=== PATIENT | male | born 1970 | race Caucasian/White ===

== ENCOUNTER 2021-11-13 17:28 | Emergency (ER) | payer BC ==
[~2021-11-13] VITALS: Ht 180.3 cm; Wt 95.5 kg
[2021-11-13 18:46] LABS: BILIRUBIN,URINE NEG (NEG); CLARITY,URINE CLEAR; COLOR,URINE YELLOW; GLUCOSE,URINE NEG (NEG)
[2021-11-13 18:47] LABS: NITRITE,URINE NEG (NEG); UROBILINOGEN,URINE 0.2 mg/dL (0.2 mg/dL)
[2021-11-13 18:48] LABS: BACTERIA,URINE FEW /HPF (0-FEW); SQUAMOUS EPITHELIAL CELL,UR FEW /LPF
--- NOTE | 2021-11-13 20:24 | RAD ---
CT abdomen pelvis without contrast dated 11/13/2021. COMPARISON: None. TECHNIQUE: Contiguous axial imaging of the abdomen pelvis performed without the administration of IV or oral con trast. One or more of the following individualized dose reduction techniques were utilized for this examinat ion: 1. Automated exposure control 2. Adjustment of the mA and/or kV according to patient size 3. Use of iterative reconstruction technique. FINDINGS: Limited images of lung bases are clear. Heart size within normal limits. No pleural or pericardial ef fusion. Solid abdominal viscera not well evaluated in the absence of contrast material. No apparent attenuati on abnormality of the liver or spleen. Pancreas, adrenal glands and gallbladder are unremarkable. There is a 3 mm calcific stone at the right UVJ. No significant hydronephrosis or hydroureter. There is mild pelvocaliectasis on the left without left-sided ureteral stone. There are couple of low-densi ty foci scattered throughout the left kidney, likely cysts. There is also a 3 mm calcific stone at th e lower pole left kidney. Unopacified GI tract normal in caliber and contour. No focal bowel wall thickening. No inflammatory s tranding in the mesentery. The appendix is normal in caliber. No ascites or lymphadenopathy. Abdomina l aorta normal in caliber. Images of pelvis a moderately distended urinary bladder. Prostate gland normal in size. No free fluid or pelvic adenopathy. Small right inguinal hernia containing only fat. Bone window show no acute finding. Multilevel spondylosis. IMPRESSION: 1. Small calcific density in the posterior urinary bladder near the right UVJ, likely a recently pass ed left ureteral stone. There is mild left-sided pelvocaliectasis with mild asymmetric inflammatory s tranding in the left perinephric fat. No significant hydronephrosis on the right. 2. Left-sided nephrolithiasis. 3. Multiple indeterminate low-density foci throughout the left kidney, likely cysts. 4. Distended urinary bladder. 5. Right inguinal hernia containing only fat. Electronically signed by: Keyon Nicholas MD (11/13/2021 8:22 PM) [facility]
[2021-11-13 20:37] VITALS: BP 163/85
--- NOTE | 2021-11-13 21:23 | PHYS DOC ---
Past History Additional Past Medical Histor: kidney stones Past Surgical History: No Surgical History Adult General Chief Complaint Chief Complaint: FLANK PAIN HPI HPI Patient is a otherwise healthy 51-year-old male, with a history of renal stones who presents to the emergency department with a chief complaint of right-sided flank pain for day, 4 out of 10, sharp in nature. States has had this before when he had kidney stones. Denies any recent trauma, travel, illnesses, fevers, chest pain, shortness of breath, abdominal pain, nausea, vomiting, diarrhea, dysuria, hematuria or blood in the stool. States he didn't take any medications. Review of Systems Review of Systems Review of systems otherwise unremarkable except noted in HPI Allergies Allergies Allergies Coded Allergies Type Severity Reaction Last Updated Verified No Known Drug Allergies 11/13/21 No Physical Exam Physical Exam Constitutional: Well developed, well nourished, no acute distress, non-toxic appearance. [] HENT: Normocephalic, atraumatic, bilateral external ears normal, oropharynx moist, no oral exudates, nose normal. [] Cardiovascular:Heart rate regular rhythm, no murmur [] Lungs & Thorax: Bilateral breath sounds clear to auscultation [] Abdomen: soft, no tenderness, no masses, no pulsatile masses. [] Skin: Warm, dry, no erythema, no rash. [] Back: no CVA tenderness. [] Extremities: No tenderness, no cyanosis, no clubbing, ROM intact, no edema. [] Neurologic: Alert and oriented X 3, no focal deficits noted. [] Psychologic: Affect normal, judgement normal, mood normal. [] Current Patient Data Vital Signs Vital Signs Date Time Temp Pulse Resp B/P (MAP) Pulse Ox O2 Delivery O2 Flow Rate FiO2 11/13/21 20:37 81 18 163/85 (111) 98 Room Air Lab Results Laboratory Tests Test 11/13/21 18:25 Urine Collection Type Unknown Urine Color Yellow Urine Clarity Clear Urine pH 6.0 Urine Specific [place] 1.010 Urine Protein Neg (NEG-TRACE) Urine Glucose (UA) Neg mg/dL (NEG) Urine Ketones (Stick) Neg mg/dL (NEG) Urine Blood Trace (NEG) Urine Nitrite Neg (NEG) Urine Bilirubin Neg (NEG) Urine Urobilinogen Dipstick 0.2 mg/dL (0.2 mg/dL) Urine Leukocyte Esterase Neg (NEG) Urine RBC 1-2 /HPF (0-2) Urine WBC 1-4 /HPF (0-4) Urine Squamous Epithelial Cells Few /LPF Urine Bacteria Few /HPF (0-FEW) EKG EKG [] Radiology/Procedures Radiology/Procedures [] Heart Score C/O Chest Pain: No Risk Factors: Risk Factors: DM, Current or recent (<one month) smoker, HTN, HLP, family history of CAD, obesity. Risk Scores: Risk Factors: DM, Current or recent (<one month) smoker, HTN, HLP, family history of CAD, obesity. Course & Med Decision Making Course & Med Decision Making Patient is a 51-year-old male who presents with right flank pain Vital signs notable for hypertension. Physical exam noted above. Patient given pain medicine. Denied need for nausea medicine. CT notable for past renal stone in the bladder. Discussed all findings with patient. Discussed symptom management at home. Discussed diet at home for renal lithiasis. Advised to follow-up in the morning with primary care physician. Gave strict return precautions to the ED. Patient grateful, verbalized understanding and agr eed with plan of discharge Dragon Disclaimer Dragon Disclaimer This electronic medical record was generated, in whole or in part, using a voice recognition dictation system. Departure Departure: Impression: Primary Impression: Kidney stones Disposition: HOME / SELF CARE / HOMELESS Condition: GOOD Referrals: PCP,SANTA (PCP) JAIR REHMAN MD Patient Instructions: Diet for Kidney Stones, Kidney Stones Additional Instructions: Thank you for coming into the emergency department tonight and allowing us to take care of you. Please read the attached information carefully to go back over some of the things we discussed. You can take Tylenol and ibuprofen as needed. Please be sure to drink plenty of fluids. Please follow-up with your primary care physician in the morning to set up a follow-up visit. Please come back to the ED with new or concerning symptoms as we discussed. KERRI FERREIRA MD Nov 13, 2021 21:23
[2021-11-13] MEDS ORDERED: oxyCODONE/APAP 5/325 1 TAB TABLET ONE (21:35)
== END 2021-11-13 21:37 | disposition home or self-care (01) ==
LOC: ER 17:28
DX: N20.0 Calculus of kidney (principal); Z87.442 Personal history of urinary calculi
CPT/HCPCS: 74176; 81001; 99284

== ENCOUNTER 2021-11-20 15:27 | Emergency (ER) | payer BC ==
[~2021-11-20] VITALS: Ht 180.3 cm; Wt 95.5 kg
--- NOTE | 2021-11-20 15:44 | PHYS DOC ---
Past History Additional Past Medical Histor: kidney stones Past Surgical History: No Surgical History General Adult EDM: Chief Complaint: WOUND CHECK HPI: HPI: Patient is a 51-year-old male coming in for a work release to return to work. Patient was diagnosed with Covid 7 days ago when symptoms started 10 days ago. He states that he has been done better but still has occasional subjective chills and chest tightness of taking a deep breath. He still has fatigue but denies any loss of smell or taste and smell to keep up on his p.o. intake. Review of Systems: Review of Systems: All other systems within normal limits except for as noted in the HPI Allergies: Allergies: Allergies Coded Allergies Type Severity Reaction Last Updated Verified No Known Drug Allergies 11/13/21 No Physical Exam: PE: Constitutional: Well developed, well nourished, no acute distress, non-toxic appearance. [] HENT: Normocephalic, atraumatic, bilateral external ears normal, nose normal. [] Eyes: PERRLA, conjunctiva normal, no discharge. [] Neck: No rigidity, supple, no stridor. [] Cardiovascular: Regular rate and rhythm, brisk cap refill [] Lungs & Thorax: Non labored symmetric respirations, no tachypnea or respiratory distress [] Abdomen: Soft, nondistended. Skin: Warm, dry, no erythema, no rash. [] Back: Unremarkable Extremities: No deformities, range of motion grossly intact, no lower extremity edema [] Neurologic: Alert and oriented X 3, no focal deficits noted. [] Psychologic: Affect normal, judgement normal, mood normal. [] EKG: EKG: [] Radiology/Procedures: Radiology/Procedures: [address] [address] IMAGING REPORT Signed PATIENT: RENATE EMMANUEL ACCOUNT: [id number] : 1970 LOCATION: ER AGE: 51 SEX: M EXAM STATUS: REG ER ORD. PHYSICIAN: KADIE LEE MD REASON: post covid pneumonia PROCEDURE: CHEST PA & LATERAL Single view of the chest. 11/20/2021 3:48 PM Indication: Reason: post covid pneumonia / Comparison: None available Findings: There is left upper lung infiltrate concerning for pneumonia. Probable minimal patchy infiltrates in the right lung also noted. No pneumothorax or pleural effusion is seen. Heart size is normal. Bony thorax is grossly intact. IMPRESSION Left upper lobe infiltrate concerning for pneumonia. Possible mild patchy infiltrates in the right lung. Radiographic follow-up to resolution recommended Electronically signed by: Zulma Benton MD (11/20/2021 4:03 PM) [id number] DICTATED AND SIGNED BY: ZULMA BENTON MD DATE: 11/20/21 160 CC: KADIE LEE MD; PCP,NO ~MTH0 0 [] Heart Score: C/O Chest Pain: No Risk Factors: Risk Factors: DM, Current or recent (<one month) smoker, HTN, HLP, family history of CAD, obesity. Risk Scores: Score 0 - 3: 2.5% MACE over next 6 weeks - Discharge Home Score 4 - 6: 20.3% MACE over next 6 weeks - Admit for Clinical Observation Score 7 - 10: 72.7% MACE over next 6 weeks - Early Invasive Strategies Course & Med Decision Making: Course & Med Decision Making Pertinent Labs and Imaging studies reviewed. (See chart for details) [] Dragon Disclaimer: Dragon Disclaimer: This electronic medical record was generated, in whole or in part, using a voice recognition dictation system. Departure Departure: Impression: Primary Impression: Pneumonia Disposition: HOME / SELF CARE / HOMELESS Condition: STABLE Referrals: PCP,NO (PCP) Patient Instructions: Pneumonia, Adult Scripts Doxycycline Hyclate (DOXYCYCLINE HYCLATE) 100 Mg Tablet 1 TAB PO BID for antibiotic for 7 Days, #14 TAB Prov: KADIE LEE MD 11/20/21 KADIE LEE MD Nov 20, 2021 15:44
[2021-11-20 15:45] VITALS: BP 163/85
--- NOTE | 2021-11-20 16:06 | RAD ---
Single view of the chest. 11/20/2021 3:48 PM Indication: Reason: post covid pneumonia / Comparison: None available Findings: There is left upper lung infiltrate concerning for pneumonia. Probable minimal patchy infil trates in the right lung also noted. No pneumothorax or pleural effusion is seen. Heart size is kraig l. Bony thorax is grossly intact. IMPRESSION Left upper lobe infiltrate concerning for pneumonia. Possible mild patchy infiltrates in t he right lung. Radiographic follow-up to resolution recommended Electronically signed by: Hebert Trotter MD (11/20/2021 4:03 PM) [id number]
[2021-11-20] MEDS ORDERED: DOXY100T PO (16:21)
== END 2021-11-20 16:31 | disposition home or self-care (01) ==
LOC: ER 15:27
DX: J18.9 Pneumonia, unspecified organism (principal)
CPT/HCPCS: 71046; 99283

== ENCOUNTER 2022-04-22 16:30 | Emergency (ER) | payer BC ==
[~2022-04-22] VITALS: Ht 180.3 cm; Wt 95.5 kg
[~2022-04-22 16:30] MED LIST: DOXY100T PO
--- NOTE | 2022-04-22 19:27 | PHYS DOC ---
Past History Past Medical History: Diabetes, Hypertension Additional Past Medical Histor: kidney stones, peripheral neuropathy Past Surgical History: No Surgical History Alcohol Use: None General Adult EDM: Chief Complaint: LOWER EXT PAIN HPI: HPI: Patient is a 51 year old male with PMHx that includes DMII with peripheral neuropathy and HTN who presents with bilateral calf pain. Patient states he has had pain for []. 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 He denies chest pain, palpitations, cough, shortness of breath. Review of Systems: Review of Systems: ROS negative or noncontributory except as mentioned in HPI. Allergies: Allergies: Allergies Coded Allergies Type Severity Reaction Last Updated Verified No Known Drug Allergies 11/13/21 No Physical Exam: PE: Constitutional: Well developed, well nourished, no acute distress, non-toxic appearance. HENT: Normocephalic, atraumatic, bilateral external ears normal, nose normal. Eyes: EOMI, conjunctiva normal, no discharge. Neck: Normal range of motion, no stridor. Thorax: Equal thoracic expansion, no increased work of breathing. Skin: Warm, dry, no erythema, no rash. Back: No tenderness, no CVA tenderness. Extremities: Popliteal tenderness bilaterally, negative Mateusz's sign bilatera lly, no cyanosis, no clubbing, active ROM intact hips/kness/ankles, no edema. Neurologic: Alert and oriented x4, normal motor function, normal sensory function, no focal deficits noted. Current Patient Data: Vital Signs: Vital Signs Date Time Temp Pulse Resp B/P (MAP) Pulse Ox O2 Delivery O2 Flow Rate FiO2 04/22/22 18:17 97.7 70 18 114/80 (91) 99 Room Air Radiology/Procedures: Radiology/Procedures: PROCEDURE: VENOUS LOWER EXT BILATERAL EXAMINATION: US BILATERAL LOWEREXTREMITY VENOUS DOPPLER (LOWER EXTREMITY VENOUS ULTRASOUND) CLINICAL HISTORY: Bilateral lower extremity pain, tightness, swelling. TECHNIQUE: Sonographic grayscale images obtained of the bilateral lower extremity deep venous systems with color flow Doppler, compression, and augmentation techniques as indicated. Images obtained and stored in a permanent archive. COMPARISON: None FINDINGS: RIGHT: No evidence of absent flow or incompressibility within the common femoral vein, femoral vein, or popliteal vein. Visualized calf veins appear patent on limited evaluation. LEFT: No evidence of absent flow or incompressibility within the common femoral vein, femoral vein, or popliteal vein. Visualized calf veins appear patent on limited evaluation. IMPRESSION: No evidence of bilateral lower extremity DVT. Electronically signed by: Yahir Gutierrez DO (04/22/2022 8:15 PM) [facility] Heart Score: C/O Chest Pain: No Course & Med Decision Making: Course & Med Decision Making Pertinent Labs and Imaging studies reviewed. (See chart for details) Bilateral lower extremity ultrasounds did not show any evidence of DVT or cysts at this time. Patient was advised to follow-up with his primary care provider for any continued complaints when he gets home. Return precautions were provided. Patient understands and is agreeable to discharge plan. Avis Disclaimer: Avis Disclaimer: This electronic medical record was generated, in whole or in part, using a voice recognition dictation system. Departure Departure: Impression: Primary Impression: Bilateral lower extremity pain Disposition: HOME / SELF CARE / HOMELESS Condition: GOOD Referrals: PCP,SANTA (PCP) Patient Instructions: Muscle Cramps, [id number] Additional Instructions: EMERGENCY DEPARTMENT GENERAL DISCHARGE INSTRUCTIONS Thank you for coming to [facility] (ED) today and trusting us with you care. We trust that you had a positive experience in our Emergency Department. If you wish to speak to the department management, you may call the director at [phone]. YOUR FOLLOW UP INSTRUCTIONS ARE FOLLOWS: 1. Follow up with your primary care doctor. If you do not have a primary doctor, please ask for a resource list of physicians or clinics that may be able to assist you with follow up care. 2. The emergency provider has interpreted your imaging studies, if any were ordered. The radiology specialist field engineer also reviewed them. If there is a change in the findings, you will be notified in 48 hours when at all possible. 3. If a lab test or culture has been done, your results will be reviewed and you will be notified if you need a change in treatment. 4. Follow instructions verbalized to you and refer to the printouts if needed. ADDITIONAL INSTRUCTIONS AND INFORMATION: 1. Your care today has been supervised by a physician who is specially trained in emergency care. Many problems require more than one evaluation for a complete diagnosis and treatment. We recommend that you schedule your follow up appointment as recommended to ensure complete treatment of you illness or injury. If you are unable to obtain follow up care and continue to have a problem, or if your condition worsens, we recommend that you return to the ED. 2. We are not able to safely determine your condition over the phone nor are we able to give sound medical advice over the phone. For these safety reasons, if you call for medical advice we will ask you to come to the ED for further evaluation. 3. If you have any questions regarding these discharge instructions please call the ED at [phone]. SAFETY INFORMATION: In the interest of safety, wellness, and injury prevention; we encourage you to wear your seat belt, if you smoke; quite smoking, and we encourage family to use a protective helmet for bicycling and other sporting events that present an increased risk for head injury. IF YOUR SYMPTOMS WORSEN OR NEW SYMPTOMS DEVELOP, OR YOU HAVE CONCERNS ABOUT YOUR CONDITION; OR IF YOUR CONDITION WORSENS WHILE YOU ARE WAITING FOR YOUR FOLLOW UP APPOINTMENT; EITHER CONTACT YOUR PRIMARY CARE DOCTOR, THE PHYSICIAN WHOSE NAME AND NUMBER YOU WERE GIVEN, OR RETURN TO THE ED IMMEDIATELY. BINDU ALDRIDGE April 22, 2022 19:27
--- NOTE | 2022-04-22 20:17 | RAD ---
EXAMINATION: US BILATERAL LOWEREXTREMITY VENOUS DOPPLER (LOWER EXTREMITY VENOUS ULTRASOUND) CLINICAL HISTORY: Bilateral lower extremity pain, tightness, swelling. TECHNIQUE: Sonographic grayscale images obtained of the bilateral lower extremity deep venous systems with color flow Doppler, compression, and augmentation techniques as indicated. Images obtained and stored in a permanent archive. COMPARISON: None FINDINGS: RIGHT: No evidence of absent flow or incompressibility within the common femoral vein, femoral vein, or popl iteal vein. Visualized calf veins appear patent on limited evaluation. LEFT: No evidence of absent flow or incompressibility within the common femoral vein, femoral vein, or popl iteal vein. Visualized calf veins appear patent on limited evaluation. IMPRESSION: No evidence of bilateral lower extremity DVT. Electronically signed by: Yahir Gutierrez DO (04/22/2022 8:15 PM) [facility]
[2022-04-22 20:58] VITALS: BP 158/96
== END 2022-04-22 20:58 | disposition home or self-care (01) ==
LOC: ER 16:30
DX: M79.662 Pain in left lower leg (principal); M79.661 Pain in right lower leg; E11.42 Type 2 diabetes mellitus with diabetic polyneuropathy; I10 Essential (primary) hypertension; Z87.442 Personal history of urinary calculi
CPT/HCPCS: 93970; 99284